=== PATIENT | male | born 1960 | race Caucasian/White ===

== ENCOUNTER 2018-11-18 15:25 | Emergency (ER) | payer SELFPAY ==
--- NOTE | 2018-11-18 15:55 | ER Document Report ---
Addendum entered and electronically signed by MEAGAN GARCIA LPC 11/19/18 11:37: Discharge - Discharge Clinical Impression: Acute hyperkalemia, Suicidal ideation Uncontrolled diabetes mellitus Qualifiers: Diabetes mellitus type: type 2 Glycemic state: with hyperglycemia Qualified Code(s): E11.65 - Type 2 diabetes mellitus with hyperglycemia Alcohol intoxication Qualifiers: Complication of substance-induced condition: uncomplicated Qualified Code(s): F10.920 - Alcohol use, unspecified with intoxication, uncomplicated Condition: Stable Disposition: HOME, SELF-CARE Additional Instructions: You have been evaluated by both medical and mental health providers while in the emergency department. You have been cleared from both acute medical and p sychiatric issues due to firearms having been removed, family involved (, son) and wanting to be linked to outpatient mental health services. DEPRESSION: Your evaluation reveals that you have mental depression. While symptoms may be vague, they often include disturbance of sleep, fatigue, loss of appetite, and general loss of interest in life. While depression may be a side effect of drugs, or a reaction to a major change in your life, many cases have no known cause. If depression is acute, and related to a major loss in your life, you can expect it to clear completely with time. If you have been depressed a long time, are prone to repeated bouts of depression or low mood, or have been thinking of suicide, get help. Depression can be treated with anti-depressant medication and counselling. Long-term depression will often take a few weeks to clear, even with appropriate medication. Follow-up care is important. SUICIDAL IDEATION: Suicidal ideation is a common medical term for thoughts about suicide, which may be as detailed as a formulated plan, without the suicidal act itself. Although most people who undergo suicidal ideation do not commit suicide, some go on to make suicide attempts. The range of suicidal ideation varies greatly from fleeting to detailed planning, role playing, and unsuccessful attempts. While thoughts about suicide are common, most people do not carry out serious actions to commit suicide. Based upon your evaluation and discussion with you, we do not believe you are currently at risk to act upon your thoughts of suicide. You have agreed to return to the Emergency Department, at any time, if you feel inclined to act upon your suicidal thoughts. Acute Alcohol Intoxication Your evaluation revealed very high levels of alcohol. You can from drinking a large amount of alcohol rapidly! Further, there's the risk of falls, traffic accidents, and fights. A high portion (about 50 percent) of the serious injuries seen in hospital emergency rooms are caused by alcohol. Alcohol overdosage is usually due to an underlying emotional or psychiatric problem. You may benefit from counselling. If "binge" drinking is an ongoing problem for you, or if you drink ANY AMOUNT of alcohol EVERY day, you most likely have a tendency to alcoholism. You should avoid alcohol totally. We can refer you for treatment. Persons with alcohol problems are often also prone to other addictions -- you should discuss any use of medications or drugs with the doctor. You should be watched at home for the next several hours by someone who has not been drinking. Get extra fluids for the next 24 hours. Call the doctor if there is repeated vomiting, increasing headache, decreasing level of alertness, or any other worsening. FOLLOW-UP CARE: Your has confirmed the firearms were removed from the home by law enforcement yesterday and no other firearms available. Kylie confirmed your prescription of Suboxone is ready. You should try to avoid use of it since you have gone without it. You are being connected to outpatient follow up for medication management and therapy at [facility] on 11/26/18 at 0800. You have been provided with the outpatient mental health resource sheet which documented appointment location, date and time. Also [facility] mobile crisis management number. If you experience worsening or a significant change in your symptoms, notify the physician immediately, utilize mobile crisis or return to the Emergency Department at any time for re-evaluation. Referrals: [facility] [Outside] - Follow up as needed [facility] [Outside] - 11/26/18 8:00 am Addendum entered and electronically signed by MEAGAN GARCIA LPC 11/19/18 11 :28: Discharge - Discharge Clinical Impression: Acute hyperkalemia, Suicidal ideation Uncontrolled diabetes mellitus Qualifiers: Diabetes mellitus type: type 2 Glycemic state: with hyperglycemia Qualified Code(s): E11.65 - Type 2 diabetes mellitus with hyperglycemia Alcohol intoxication Qualifiers: Complication of substance-induced condition: uncomplicated Qualified Code(s): F10.920 - Alcohol use, unspecified with intoxication, uncomplicated Condition: Stable Disposition: HOME, SELF-CARE Additional Instructions: You have been evaluated by both medical and mental health providers while in the emergency department. You have been cleared from both acute medical and psychiatric issues due to firearms having been removed, family involved (, son) and wanting to be linked to outpatient mental health services. DEPRESSION: Your evaluation reveals that you have mental depression. While symptoms may be vague, they often include disturbance of sleep, fatigue, loss of appetite, and general loss of interest in life. While depression may be a side effect of drugs, or a reaction to a major change in your life, many cases have no known cause. If depression is acute, and related to a major loss in your life, you can expect it to clear completely with time. If you have been depressed a long time, are prone to repeated bouts of depression or low mood, or have been thinking of suicide, get help. Depression can be treated with anti-depressant medication and counselling. Long-term depression will often take a few weeks to clear, even with appropriate medication. Follow-up care is important. SUICIDAL IDEATION: Suicidal ideation is a common medical term for thoughts about suicide, which may be as detailed as a formulated plan, without the suicidal act itself. Although most people who undergo suicidal ideation do not commit suicide, some go on to make suicide attempts. The range of suicidal ideation varies greatly from fleeting to detailed planning, role playing, and unsuccessful attempts. While thoughts about suicide are common, most people do not carry out serious actions to commit suicide. Based upon your evaluation and discussion with you, we do not believe you are currently at risk to act upon your thoughts of suicide. You have agreed to return to the Emergency Department, at any time, if you feel inclined to act upon your suicidal thoughts. Acute Alcohol Intoxication Your evaluation revealed very high levels of alcohol. You can from drinking a large amount of alcohol rapidly! Further, there's the risk of falls, traffic accidents, and fights. A high portion (about 50 percent) of the serious injuries seen in hospital emergency rooms are caused by alcohol. Alcohol overdosage is usually due to an underlying emotional or psychiatric problem. You may benefit from counselling. If "binge" drinking is an ongoing problem for you, or if you drink ANY AMOUNT of alcohol EVERY day, you most likely have a tendency to alcoholism. You should avoid alcohol totally. We can refer you for treatment. Persons with alcohol problems are often also prone to other addictions -- you should discuss any use of medications or drugs with the doctor. You should be watched at home for the next several hours by someone who has not been drinking. Get extra fluids for the next 24 hours. Call the doctor if there is repeated vomiting, increasing headache, decreasing level of alertness, or any other worsening. FOLLOW-UP CARE: Your wive has confirmed the firearms were removed from the home by law enforcement yesterday and no other firearms available. Daphneshaniat confirmed your prescription of Suboxone is ready. You should try to avoid use of it since you have gone without it. You are being connected to outpatient follow up for medication management and therapy at [facility] for mental health and substance abuse. You have been provided with the outpatient mental health resource sheet which documented appointment location, date and time. Also highlighted [facility] mobile crisis management number. If you experience worsening or a significant change in your symptoms, notify the physician immediately, utilize mobile crisis or return to the Emergency Department at any time for re-evaluation. Referrals: [facility] Crisis Team [Outside] - Follow up as needed [facility] [Outside] - Follow up as needed Original Note: ED Medical Screen (RME) - General Chief Complaint: Psych Problem Stated Complaint: PSYCH EVAL Time Seen by Provider: 11/18/18 15:48 Notes: Patient is a 58-year-old male with history of chronic low back pain that presents to the emergency department for chief complaint of suicidal ideation and threatened attempt. Patient apparently was holding a shotgun, threatening to kill himself, stating that he needs to have his Suboxone for his chronic low back pain, he reports being out of it for about a month, states that he has not found a physician that is willing to prescribe it for him here, he recently m qi from [place] this past May, he states he was previously on 2 mg of Suboxone and is gotten so bad that he states that he would rather be or have his medication for his pain. ROS: Other than noted above, the 12 point review of systems was reviewed with the patient and were negative, all pertinent findings are included in the HPI. PHYSICAL EXAMINATION: Vital signs reviewed. GENERAL: Patient is agitated and irritated, but answering questions appropriately HEAD: Atraumatic, normocephalic. EYES: Pupils equal round extraocular movements intact, conjunctiva are normal. ENT: Nares patent NECK: Normal range of motion CV: Heart rate tachycardic, regular rhythm LUNGS: No respiratory distress Musculoskeletal: Normal range of motion NEUROLOGICAL: Normal speech PSYCH: Patient is agitated on exam, poor eye contact MDM: Patient seen and examined for rapid initial assessment. Vital signs reviewed. A comprehensive ED assessment and evaluation of the patient, analysis of test results and completion of the medical decision making process will be conducted by additional ED providers. *Note is created using voice recognition software and may contain spelling, syntax or grammatical errors. TRAVEL OUTSIDE OF THE [place] IN LAST 30 DAYS: No - Related Data Allergies/Adverse Reactions: No Known Allergies Allergy (Unverified 11/18/18 15:30) Past Medical History - Social History Drug Abuse: Prescription drugs Endocrine Medical History: Reports: Hx Diabetes Mellitus Type 1 Renal/ Medical History: Denies: Hx Peritoneal Dialysis Psychiatric Medical History: Reports: Hx Depression Physical Exam - Vital signs Vitals: Temp Pulse Resp BP Pulse Ox 97.7 F 105 H 18 137/91 H 96 11/18/18 15:36 11/18/18 15:36 11/18/18 15:36 11/18/18 15:36 11/18/18 15:36 Course - Vital Signs Vital signs: Temp Pulse Resp BP Pulse Ox 97.7 F 105 H 18 137/91 H 96 11/18/18 15:36 11/18/18 15:36 11/18/18 15:36 11/18/18 15:36 11/18/18 15:36 - Laboratory Result Diagrams: 11/18/18 16:15 11/18/18 16:15
[2018-11-18 16:39] LABS: ABSOLUTE BASOPHILS # (AUTO) 0.1 10^3/uL (0.0-0.2); ABSOLUTE EOSINOPHILS # (AUTO) 0.1 10^3/uL (0.0-0.6); ABSOLUTE LYMPHOCYTES (AUTO) 1.8 10^3/uL (0.5-4.7); ABSOLUTE MONOCYTES (AUTO) 0.6 10^3/uL (0.1-1.4); ABSOLUTE NEUT (AUTO) 5.4 10^3/uL (1.7-8.2); BASOPHILS % (AUTO) 0.9 % (0-2); EOSINOPHILS % (AUTO) 0.8 % (0-6); HEMOGLOBIN 19.7 g/dL (13.5-17.0); LYMPHOCYTES % (AUTO) 22.5 % (13-45); MEAN CORPUSCULAR HEMOGLOBIN 32.5 pg (27.0-33.4); MEAN CORPUSCULAR VOLUME 96 fl (80-97); MONOCYTES % (AUTO) 7.7 % (3-13); PLATELET COUNT 271 10^3/uL (150-450); RED BLOOD COUNT 6.05 10^6/uL (4.35-5.55); RED CELL DISTRIBUTION WIDTH 13.5 % (11.5-14.0); SEGMENTED NEUTROPHILS % (AUTO) 68.1 % (42-78); TOTAL CELLS COUNTED % (AUTO) 100 %
[2018-11-18 16:48] LABS: HEMATOCRIT 57.9 % (37.9-51.0)
[2018-11-18 16:49] LABS: APPEARANCE,URINE CLEAR; BILIRUBIN,URINE NEGATIVE (NEGATIVE); COLOR,URINE COLORLESS; GLUCOSE, URINE >=500 mg/dL (NEGATIVE); KETONES,URINE TRACE mg/dL (NEGATIVE); LEUKOCYTE ESTERASE,URINE NEGATIVE (NEGATIVE); NITRITE,URINE NEGATIVE (NEGATIVE); PROTEIN,URINE NEGATIVE (NEGATIVE); URINE SPECIFIC GRAVITY 1.021; UROBILINOGEN,URINE NEGATIVE mg/dL (<2.0)
[2018-11-18 17:11] LABS: URINE AMPHETAMINES SCREEN NEGATIVE; URINE BARBITURATES SCREEN NEGATIVE; URINE BENZODIAZEPINES SCREEN NEGATIVE; URINE COCAINE SCREEN NEGATIVE; URINE METHADONE SCREEN NEGATIVE; URINE PHENCYCLIDINE SCREEN NEGATIVE
[2018-11-18 17:29] LABS: URINE MARIJUANA (THC) SCREEN NEGATIVE
[2018-11-18 17:53] LABS: ALANINE AMINOTRANSFERASE 28 U/L (21-72); ALCOHOL 187 mg/dL (NONE DETECTED); ALKALINE PHOSPHATASE 80 U/L (38-126); ANION GAP 18 (5-19); ASPARTATE AMINO TRANSFERASE 23 U/L (17-59); BILIRUBIN,DIRECT 0.3 mg/dL (0.0-0.4); BILIRUBIN,TOTAL 0.5 mg/dL (0.2-1.3); BLOOD UREA NITROGEN 14 mg/dL (7-20); CALCIUM 10.5 mg/dL (8.4-10.2); CARBON DIOXIDE 23 mmol/L (22-30); CHLORIDE 99 mmol/L (98-107); POTASSIUM 5.3 mmol/L (3.6-5.0); SODIUM 139.7 mmol/L (137-145); TOTAL PROTEIN 8.3 g/dL (6.3-8.2)
[2018-11-18 18:10] LABS: ACETAMINOPHEN < 10 ug/mL (10-30); SALICYLATE < 1.0 mg/dL (2.0-20.0)
[2018-11-18 18:13] LABS: GLUCOSE 438 mg/dL (75-110)
[2018-11-18] MEDS ORDERED: NORMAL SALINE 1000 ML 1,000 ML IV ONE ×2 (18:19)
[2018-11-18] MEDS ORDERED: INSULIN REG, HUMAN 100 UNIT/ML 3 ML VIAL (PYX) IV ONE (18:19)
[2018-11-18 18:40] LABS: VENOUS BLOOD BASE EXCESS -3.3 mmol/L; VENOUS BLOOD HCO3 22.8 mmol/L (20-32); VENOUS BLOOD PCO2 44.6 mmHg (35-63); VENOUS BLOOD PH 7.33 (7.30-7.42)
[2018-11-18] MEDS ORDERED: LORAZEPAM INJ 2 MG/1 ML VIAL ONE (18:43)
[2018-11-18] MEDS ORDERED: HALOPERIDOL LACTATE INJ 5 MG/1 ML VIAL ONE (18:47)
[2018-11-18] MEDS ORDERED: LORAZEPAM INJ 2 MG/1 ML VIAL IM ONE (19:00)
[2018-11-18] MEDS ORDERED: HALOPERIDOL LACTATE INJ 5 MG/1 ML VIAL IM ONE (19:00)
--- NOTE | 2018-11-18 21:49 | EKG REPORT ---
SEVERITY:- BORDERLINE ECG - SINUS RHYTHM BORDERLINE T ABNORMALITIES, INFERIOR LEADS : Confirmed by: Glo Mo MD 18-Nov-2018 21:49:09
[2018-11-18 22:27] LABS: ANION GAP 14 (5-19); BLOOD UREA NITROGEN 13 mg/dL (7-20); CALCIUM 8.9 mg/dL (8.4-10.2); CARBON DIOXIDE 20 mmol/L (22-30); CHLORIDE 106 mmol/L (98-107); GLUCOSE 172 mg/dL (75-110); POTASSIUM 4.4 mmol/L (3.6-5.0); SODIUM 140.1 mmol/L (137-145)
--- NOTE | 2018-11-18 22:34 | ER Document Report ---
ED Psych Disorder / Suicide - General Chief Complaint: Psych Problem Stated Complaint: PSYCH EVAL Time Seen by Provider: 11/18/18 15:48 Mode of Arrival: Ambulatory Information source: Patient Notes: Patient complained of suicidal ideation because he was in pain and said he called his doctor to call in a prescription for Suboxone for him. He said he does not want to live in pain anymore and wanted to kill himself. TRAVEL OUTSIDE OF THE [place] IN LAST 30 DAYS: No - HPI Patient complains to provider of: Suicidal ideation Onset: Just prior to arrival Onset was: Sudden Quality of pain: No pain Severity: None Pain Level: Denies Suicide Risk Factors: Male, Organized plan Normal mood: No Associated symptoms: Angry, Depressed Similar symptoms previously: No Recently seen / treated by doctor: No - Related Data Allergies/Adverse Reactions: No Known Allergies Allergy (Unverified 11/18/18 15:30) Past Medical History - Social History Smoking Status: Unknown if Ever Smoked Drug Abuse: Prescription drugs Family History: Reviewed & Not Pertinent Patient has suicidal ideation: Yes Patient has homicidal ideation: No Endocrine Medical History: Reports: Hx Diabetes Mellitus Type 1 Renal/ Medical History: Denies: Hx Peritoneal Dialysis Psychiatric Medical History: Reports: Hx Depression Review of Systems - Review of Systems Constitutional: No symptoms reported EENT: No symptoms reported Cardiovascular: No symptoms reported Respiratory: No symptoms reported Gastrointestinal: No symptoms reported Genitourinary: No symptoms reported Male Genitourinary: No symptoms reported Musculoskeletal: No symptoms reported Skin: No symptoms reported Hematologic/Lymphatic: No symptoms reported Neurological/Psychological: Depression, Suicidal ideation. denies: Homicidal ideation -: Yes All other systems reviewed and negative Physical Exam - Vital signs Vitals: Temp Pulse Resp BP Pulse Ox 97.7 F 105 H 18 137/91 H 96 11/18/18 15:36 11/18/18 15:36 11/18/18 15:36 11/18/18 15:36 11/18/18 15:36 Interpretation: Normal - General General appearance: Appears well, Alert In distress: None - HEENT Head: Normocephalic, Atraumatic Eyes: Normal Pupils: PERRL - Respiratory Respiratory status: No respiratory distress Chest status: Nontender Breath sounds: Normal Chest palpation: Normal - Cardiovascular Rhythm: Regular Heart sounds: Normal auscultation Murmur: No - Abdominal Inspection: Normal Distension: No distension Bowel sounds: Normal Tenderness: Nontender Organomegaly: No organomegaly - Back Back: Normal, Nontender - Extremities General upper extremity: Normal inspection, Nontender, Normal color, Normal ROM, Normal temperature General lower extremity: Normal inspection, Nontender, Normal color, Normal ROM, Normal temperature, Normal weight bearing. No: Raúl's sign - Neurological Neuro grossly intact: Yes Cognition: Normal Orientation: AAOx4 [place] Coma Scale Eye Opening: Spontaneous [place] Coma Scale Verbal: Oriented [place] Coma Scale Motor: Obeys Commands [place] Coma Scale Total: 15 Speech: Normal Motor strength normal: LUE, RUE, LLE, RLE Sensory: Normal - Psychological Associated symptoms: Aggressive - Patient pulled out his IV and threatened to leave the ED., Depressed, Flat affect - Skin Skin Temperature: Warm Skin Moisture: Dry Skin Color: Normal Course - Vital Signs Vital signs: Temp Pulse Resp BP Pulse Ox 97.7 F 105 H 18 137/91 H 96 11/18/18 15:36 11/18/18 15:36 11/18/18 15:36 11/18/18 15:36 11/18/18 15:36 11/18/18 22:35 Patient is medically cleared for psychiatric evaluation. - Laboratory Result Diagrams: 11/18/18 16:15 11/18/18 22:01 Laboratory results interpreted by me: 11/18/18 11/18/18 11/18/18 16:15 16:15 16:15 RBC 6.05 H Hgb 19.7 H Hct 57.9 H Potassium 5.3 H Carbon Dioxide Glucose 438 H* Calcium 10.5 H Total Protein 8.3 H Urine Glucose (UA) >=500 H Urine Ketones TRACE H Salicylates < 1.0 L Acetaminophen < 10 L 11/18/18 22:01 RBC Hgb Hct Potassium Carbon Dioxide 20 L Glucose 172 H Calcium Total Protein Urine Glucose (UA) Urine Ketones Salicylates Acetaminophen - EKG Interpretation by Dc EKG shows normal: Sinus rhythm Rate: Normal - 99 Rhythm: NSR When compared to previous EKG there are: Previous EKG unavailable Additional EKG results interpreted by me: 11/18/18 22:33 No STEMI. Discharge - Discharge Clinical Impression: Acute hyperkalemia, Suicidal ideation Uncontrolled diabetes mellitus Qualifiers: Diabetes mellitus type: type 2 Glycemic state: with hyperglycemia Qualified Code(s): E11.65 - Type 2 diabetes mellitus with hyperglycemia Alcohol intoxication Qualifiers: Complication of substance-induced condition: uncomplicated Qualified Code(s): F10.920 - Alcohol use, unspecified with intoxication, uncomplicated Condition: Stable Disposition: PSYCH HOSP/UNIT
--- NOTE | 2018-11-19 11:02 | ER Document Report ---
Doctor's Note Notes: 11/19/18 10:58 I had a long discussion with this patient. He is awake, oriented and no longer intoxicated. He is able to ambulate without any difficulty. He is answering questions honestly and completely. Patient states that he was in severe pain yesterday after weaning himself off of Suboxone. He states he went from 12 mg a day to 2 mg a day and had not been on it for the last 3 days. Yesterday he states he got heavily intoxicated because of the pain. He states he wanted to make the pain stop which is why he began thinking about killing himself. He did get to the point where he found a shotgun in the house but states he did not know how to work the gun. Patient is tearful and very remorseful about doing t his. He is concerned that this may have caused a lot of strain on his and son. He states he does not want to and would never want to leave them alone. He states he is very sad that he put them through this. He denies any active suicidal or homicidal ideations. He denies history of suicidality in the past. Patient states the police took the weapons out of the house. He states he does feel safe going home and feels much better physically today. He states the pain in his low back and lower extremities is the best it has been in a long time. He does currently have a Suboxone prescription ready to be picked up at the pharmacy but he states he feels like he may be able to get off of this medication because he never wants to deal with withdrawals again. He is currently living in the area and will be referred for outpatient counseling and management. He was encouraged to return to the emergency room at any point in time for further evaluation if he is feeling unsafe. Prior to discharge the psychiatric team will confirm that all weapons have been removed and that family has no more to add to the story and feels comfortable with him being discharged home.
[2018-11-19 12:14] VITALS: BP 132/76
--- NOTE | 2018-11-20 14:26 | PSYCHOLOGICAL NOTE ---
Psych Note - Psych Note Date seen by psych provider: 11/19/18 Time seen by psych provider: 07:38 - Evaluation from [id number]. Discussion with ED Physician at 1034. Psych Note: Reason for Consult: Alcohol Intoxication, SI with plan Contact Permissions: He provided Clemente [phone] and [phone]. and Son came for support. Patient is a 58 year old male who presented to the ED yesterday for alcohol intoxication and SI with a plan. Patient was alseep. He was easily aroused and quickly became alert and oriented. He stated "I'm ready to go." He said he was in the ED because "I have been on Suboxone for 5 years, I tried to stop, I had bad withdraws, I called my doctor in [place] for refill, I drank a little and lost control." He identified he was on Suboxone "due to being prescribed pain medications and getting addicted." He said he "drank [place], something new yesterday." His Serum Alcohol Level was 187 upon arrival to the ED yesterday. He stated he just moved to [place] from [place] in May 2018, he went to a clinic locally for Suboxone, "they treat you like a drug addict here and it bothers me." He said he did not remember any SI with a plan and commented "plan, no plan." He denied history of SI attempts. He denied previous hospitalizations and detox treatment. He stated he didn't think he needed detox or treatment. He denied other drug use. He reported he recalled running off from the ED yesterday and it was because "my doctor from [place] called in my medication and said it was ready at [facility] ([facility] He stated his could be contacted but she has a new phone so he doesn't know the number without getting it from his phone and he thinks she knows he is in the ED Patient was alert and oriented to self, person, place, time and situation. Mood was pleasant and euthymic with congruent affect. He denied SI/HI and history of attempts. He did not appear to be responding to internal stimuli as evidenced by fair eye contact, answering questions appropriately when addressed, staying on topic and carrying on dialogue conversation. Thought processes were liner and organized. Conversational speech was within normal limits for rate, tone and prosody. Intellectual abilities are estimated to be average. Insight, judgment and impulse control were fair as evidenced by discussing and processing crisis with attending ED Physician later. Attending ED Physician stated patient was physically shaking and tearful when he told her he had access to 2 shot guns at home yesterday, had texted his brother and would have killed himself with one but he couldn't figure out how to use them. He reported to [place] confiscated the firearms. She noted due to his body language and demeanor it seemed he was scared and upset about doing that, said he was scared and stated he does not want to . Attending ED Physician spoke to when she arrived to ED and confirmed the firearms were in fact confiscated my LE and was okay with patient going home. Diagnosis: SI 292.0 (F11.23) Opioid Withdrawal 291.9 (F10.99) Unspecified Alcohol Related Disorder 311 (F32.9) Unspecified Depressive Disorder 304.00 (F11.20) Opioid Use Disorder, Severe (had been on Suboxone 5 years, addicted to prescribed medication) Impression/plan: Patient is cleared from acute psychiatric services. He denied current SI/HI, history of previous attempts and seemed scared/remorseful about the 2 shot guns. No observed psychosis. It is felt patient was withdrawing from Suboxone which led to him drinking alcohol and thus increased depressive state. He has had time to sober up from alcohol intoxication.. He has a prescription of Suboxone at the [facility] (confirmed by [facility]) if needed and agreed to outpatient MH linkage. Firearms have been confiscated by police per . and Son feel comfortable with patient coming home and are natural supports. Scheduled follow up appointment with [facility] on 11/26/18 at 0800. Patient provided with outpatient MH resource sheet which highlighted contact information for [facility], documented appointment date and time and highlighted [facility] for crisis/talk therapy/linkage to other supports/services. Psychoeducated patient about [facility] MCM. Consulted with Dr. Johnson regarding the management and care of patient. ED Physician in agreement with recommendations.
== END 2018-11-19 12:15 | disposition home or self-care (01) ==
LOC: ER 15:25
DX: R45.851 Suicidal ideations (principal); E87.5 Hyperkalemia; E11.65 Type 2 diabetes mellitus with hyperglycemia; F10.920 Alcohol use, unspecified with intoxication, uncomplicated; F32.9 Major depressive disorder, single episode, unspecified; F11.23 Opioid dependence with withdrawal; F10.99 Alcohol use, unspecified with unspecified alcohol-induced disorder; F11.20 Opioid dependence, uncomplicated
CPT/HCPCS: 93005; 99285; 96372; 96360; 36415; 80307 ×4; 85025; 80048; 80053; 81001; 82803; 93010; J1630; J2060; J1815; J7030

== ENCOUNTER 2019-09-30 08:52 | Inpatient (IN) | payer BC ==
[2019-09-30] MEDS ORDERED: NORMAL SALINE 1000 ML 1,000 ML IV ONE ×3 (09:05→10:18)
[2019-09-30 10:00] LABS: HEMATOCRIT 52.1 % (37.9-51.0); MEAN CORPUSCULAR HEMOGLOBIN 32.8 pg (27.0-33.4); MEAN CORPUSCULAR HGB CONC 32.7 g/dL (32.0-36.0); MEAN CORPUSCULAR VOLUME 100 fl (80-97); PLATELET COUNT 286 10^3/uL (150-450); RED BLOOD COUNT 5.19 10^6/uL (4.35-5.55); RED CELL DISTRIBUTION WIDTH 13.7 % (11.5-14.0)
[2019-09-30 10:01] LABS: ALBUMIN 4.9 g/dL (3.5-5.0); ALKALINE PHOSPHATASE 113 U/L (38-126); ASPARTATE AMINO TRANSFERASE 25 U/L (17-59); BILIRUBIN,DIRECT 0.5 mg/dL (0.0-0.4); BILIRUBIN,TOTAL 0.5 mg/dL (0.2-1.3); BLOOD UREA NITROGEN 15 mg/dL (7-20); CALCIUM 8.8 mg/dL (8.4-10.2); CHLORIDE 100 mmol/L (98-107); GLUCOSE 364 mg/dL (75-110); TOTAL PROTEIN 8.4 g/dL (6.3-8.2)
[2019-09-30 10:06] LABS: VENOUS BLOOD BASE EXCESS -29.9 mmol/L; VENOUS BLOOD HCO3 4.6 mmol/L (20-32); VENOUS BLOOD PCO2 29.7 mmHg (35-63)
[2019-09-30 10:07] LABS: APPEARANCE,URINE CLEAR; BILIRUBIN,URINE NEGATIVE (NEGATIVE); COLOR,URINE STRAW; GLUCOSE, URINE >=500 mg/dL (NEGATIVE); KETONES,URINE 80 mg/dL (NEGATIVE); LEUKOCYTE ESTERASE,URINE NEGATIVE (NEGATIVE); NITRITE,URINE NEGATIVE (NEGATIVE); PROTEIN,URINE 100 mg/dL (NEGATIVE); URINE SPECIFIC GRAVITY 1.017; UROBILINOGEN,URINE NEGATIVE mg/dL (<2.0)
[2019-09-30 10:13] LABS: CARBON DIOXIDE < 5 mmol/L (22-30)
[2019-09-30 10:14] LABS: VENOUS BLOOD PH 6.8 (7.30-7.42)
[2019-09-30] MEDS ORDERED: NORMAL SALINE 100 ML with INSULIN REGULAR, HUMAN 100 UNIT IV PRN ×2 (10:20)
[2019-09-30 10:30] LABS: ABSOLUTE LYMPHOCYTES# (MANUAL) 1.7 10^3/uL (0.5-4.7); ABSOLUTE MONOCYTES # (MANUAL) 1.2 10^3/uL (0.1-1.4); BASOPHILS % (MANUAL) 0 % (0-2); EOSINOPHILS % (MANUAL) 0 % (0-6); LYMPHOCYTES % (MANUAL) 12 % (13-45); METAMYELOCYTES % (MANUAL) 1 % (0-1); MONOCYTES % (MANUAL) 10 % (3-13); SEGMENTED NEUTROPHILS % (MAN) 75 % (42-78); TOTAL CELLS COUNTED 100
[2019-09-30 10:31] LABS: PLATELET COMMENT ADEQUATE
[2019-09-30] MEDS ORDERED: INSULIN REG, HUMAN 100 UNIT/ML 3 ML VIAL (PYX) ONE (10:37)
--- NOTE | 2019-09-30 11:08 | ER Document Report ---
ED Blood Sugar Problem - General Chief Complaint: High Blood Sugar Stated Complaint: BLOOD SUGAR PROBLEMS Time Seen by Provider: 09/30/19 10:13 Mode of Arrival: Medic Information source: Patient TRAVEL OUTSIDE OF THE [place] IN LAST 30 DAYS: No - HPI Notes: Patient states approximate 4 days ago he developed fever chills cough congestion and flulike symptoms. He states because he felt this way he did not take any of his medicines. He states he has not had his insulin for the last 4 days. He states today he began to feel very weak short of breath and nauseous. He also began to feel very thirsty. The symptoms have been severe and constant. They are worse with exertion and better with rest. They do radiate throughout his body. - Related Data Allergies/Adverse Reactions: No Known Allergies Allergy (Unverified 11/18/18 15:30) Home Medications: insulin Past Medical History - General Information source: Patient - Social History Smoking Status: Former Smoker Frequency of alcohol use: None Drug Abuse: None Family History: Reviewed & Not Pertinent Patient has suicidal ideation: No Patient has homicidal ideation: No Endocrine Medical History: Reports: Hx Diabetes Mellitus Type 1 Renal/ Medical History: Denies: Hx Peritoneal Dialysis Psychiatric Medical History: Reports: Hx Depression Review of Systems - Review of Systems Constitutional: Chills, Fever, Malaise, Weakness Cardiovascular: denies: Chest pain, Palpitations Respiratory: Cough, Short of breath -: Yes All other systems reviewed and negative Physical Exam - Vital signs Vitals: Temp 97.6 F 09/30/19 09:26 Interpretation: Tachycardic - General General appearance: Alert, Anxious In distress: Moderate - HEENT Head: Normocephalic, Atraumatic Eyes: Normal Pupils: PERRL - Respiratory Respiratory status: Tachypnea Chest status: Nontender Breath sounds: Normal Chest palpation: Normal - Cardiovascular Rhythm: Tachycardia Heart sounds: Normal auscultation Murmur: No - Abdominal Inspection: Normal Distension: No distension Bowel sounds: Normal Tenderness: Nontender Organomegaly: No organomegaly - Back Back: Normal, Nontender - Extremities General upper extremity: Normal inspection, Nontender, Normal color, Normal ROM, Normal temperature General lower extremity: Normal inspection, Nontender, Normal color, Normal ROM, Normal temperature, Normal weight bearing. No: Raúl's sign - Neurological Neuro grossly intact: Yes Cognition: Normal Orientation: AAOx4 [place] Coma Scale Eye Opening: Spontaneous [place] Coma Scale Verbal: Oriented [place] Coma Scale Motor: Obeys Commands [place] Coma Scale Total: 15 Speech: Normal Motor strength normal: LUE, RUE, LLE, RLE Sensory: Normal - Psychological Associated symptoms: Normal affect, Normal mood - Skin Skin Temperature: Warm Skin Moisture: Dry Skin Color: Normal Course - Re-evaluation Re-evalutation: 09/30/19 11:07 Patient's laboratory values are consistent with an obvious DKA. Patient has received 2 L of fluid but still appears very dry. Another 2 L of fluid have been ordered as well as an insulin drip. The [facility] plans intelligence officer chief is consulted on the patient and will accept the patient to the ICU. - Vital Signs Vital signs: Temp Pulse Resp BP Pulse Ox 97.6 F 09/30/19 09:26 - Laboratory Result Diagrams: 09/30/19 08:35 09/30/19 08:35 Laboratory results interpreted by me: 09/30/19 09/30/19 09/30/19 08:35 08:35 09:08 WBC 12.0 H Hct 52.1 H MCV 100 H Lymphocytes % (Manual) 12 L Abs Neuts (Manual) 9.1 H VBG pH VBG pCO2 VBG HCO3 Carbon Dioxide < 5 L* Glucose 364 H POC Glucose 345 H Lactic Acid Direct Bilirubin 0.5 H Total Protein 8.4 H Urine Protein Urine Glucose (UA) Urine Ketones Urine Blood 09/30/19 09/30/19 09/30/19 09:50 09:50 09:50 WBC Hct MCV Lymphocytes % (Manual) Abs Neuts (Manual) VBG pH 6.80 L* VBG pCO2 29.7 L VBG HCO3 4.6 L Carbon Dioxide Glucose POC Glucose Lactic Acid 3.3 H Direct Bilirubin Total Protein Urine Protein 100 H Urine Glucose (UA) >=500 H Urine Ketones 80 H Urine Blood MODERATE H 09/30/19 10:22 WBC Hct MCV Lymphocytes % (Manual) Abs Neuts (Manual) VBG pH VBG pCO2 VBG HCO3 Carbon Dioxide Glucose POC Glucose 316 H Lactic Acid Direct Bilirubin Total Protein Urine Protein Urine Glucose (UA) Urine Ketones Urine Blood Critical Care Note - Critical Care Note Total time excluding time spent on procedures (mins): 60 Comments: 60 minutes of critical care time were spent on this patient. This included mult iple reassessments. It included discussions with consultants. And included reviewing imaging and laboratory values as well as discussions with family. Discharge - Discharge Clinical Impression: DKA (diabetic ketoacidoses) Qualifiers: Diabetes mellitus type: type 1 Diabetes mellitus complication detail: without coma Qualified Code(s): E10.10 - Type 1 diabetes mellitus with ketoacidosis without coma Condition: Critical Disposition: ADMITTED INPATIENT Admitting Provider: Janes (Manager Portable) Unit Admitted: ICU
[2019-09-30] MEDS ORDERED: NORMAL SALINE 1000 ML 1,000 ML IV PRN (11:13)
[2019-09-30] MEDS ORDERED: ACETAMINOPHEN 325 MG TABLET PO PRN (11:13)
[2019-09-30] MEDS ORDERED: DEXTROSE 50%-WATER 25 GM/50 ML DISP.SYRIN IV PRN ×2 (11:19)
[2019-09-30] MEDS ORDERED: GLUCAGON,HUMAN RECOMB 1 MG INJ IM PRN (11:19)
[2019-09-30] MEDS ORDERED: DEXTROSE 40% GEL 15 GM TUBE PO PRN ×2 (11:19)
--- NOTE | 2019-09-30 11:33 | PDOC CRITICAL CARE PROG REPORT ---
General Date:: 09/30/19 ICU Day:: 1 Hospital Day:: 1 Resuscitation Status: Full Code Events in the past 12 to 24 Hours:: Admitted in first episode of DKA with a VBG 6.8. Had the flu about a week ago. Has not checked BG. Feeling ill this AM. Very short of breath. Consistant with [place] breathing. IVF and insulin drip started. Review of systems relevant to events:: Endocrine Reason for ICU Addmission:: Severe acidosis. Needs ICU for extreme shortnesss of breath until acidosis clears. - Medications: Medications reviewed and adjusted accordingly: Yes Vasopressors:: None Sedation:: None Physical Exam Vital Signs: Temp Pulse Resp BP Pulse Ox 97.6 F 09/30/19 09:26 Intake & Output 09/29/19 09/30/19 10/01/19 06:59 06:59 06:59 Intake Total 1000 Balance 1000 Weight 86.4 kg Weight/Height Weight 86.4 kg Height 6 ft 1 in General appearance: PRESENT: cooperative, disheveled, mild distress, thin Head exam: PRESENT: atraumatic, normocephalic Eye exam: PRESENT: conjunctiva pink, EOMI, PERRLA. ABSENT: scleral icterus Ear exam: PRESENT: normal external ear exam Mouth exam: PRESENT: dry mucosa Respiratory exam: PRESENT: accessory muscle use, clear to auscultation alcides Cardiovascular exam: PRESENT: tachycardia GI/Abdominal exam: PRESENT: normal bowel sounds, soft. ABSENT: distended, guarding, mass, organolmegaly, rebound, tenderness Rectal exam: PRESENT: deferred Extremities exam: PRESENT: full ROM. ABSENT: calf tenderness, clubbing, pedal edema Neurological exam: PRESENT: alert, awake, oriented to person, oriented to place, oriented to time, oriented to situation, CN II-XII grossly intact. ABSENT: motor sensory deficit Skin exam: PRESENT: dry, intact, warm. ABSENT: cyanosis, rash Laboratory/Radiographs Laboratory Results: 09/30/19 08:35 09/30/19 08:35 09/30/19 09/30/19 09/30/19 08:35 08:35 09:50 WBC 12.0 H RBC 5.19 Hgb 17.0 Hct 52.1 H MCV 100 H MCH 32.8 MCHC 32.7 RDW 13.7 Plt Count 286 Seg Neutrophils % Not Reportable VBG pH 6.80 L* VBG pCO2 29.7 L VBG HCO3 4.6 L VBG Base Excess -29.9 Sodium 137.9 Potassium 5.0 Chloride 100 Carbon Dioxide < 5 L* Anion Gap Not Reportable BUN 15 Creatinine 1.20 Est GFR ( Amer) > 60 Glucose 364 H Lactic Acid Calcium 8.8 Total Bilirubin 0.5 AST 25 Alkaline Phosphatase 113 Total Protein 8.4 H Albumin 4.9 Urine Color Urine Appearance Urine pH Ur Specific [place] Urine Protein Urine Glucose (UA) Urine Ketones Urine Blood Urine Nitrite Ur Leukocyte Esterase Urine WBC (Auto) Urine RBC (Auto) 09/30/19 09/30/19 09:50 09:50 WBC RBC Hgb Hct MCV MCH MCHC RDW Plt Count Seg Neutrophils % VBG pH VBG pCO2 VBG HCO3 VBG Base Excess Sodium Potassium Chloride Carbon Dioxide Anion Gap BUN Creatinine Est GFR ( Amer) Glucose Lactic Acid 3.3 H Calcium Total Bilirubin AST Alkaline Phosphatase Total Protein Albumin Urine Color STRAW Urine Appearance CLEAR Urine pH 5.0 Ur Specific [place] 1.017 Urine Protein 100 H Urine Glucose (UA) >=500 H Urine Ketones 80 H Urine Blood MODERATE H Urine Nitrite NEGATIVE Ur Leukocyte Esterase NEGATIVE Urine WBC (Auto) 0 Urine RBC (Auto) 1 Impressions: Severe DKA. All labs, radiographs, diagnostic studies and EKGs were personally reviewed: Yes In addition, reports of radiographic and diagnostic studies were read: Yes Assessment and Plan - Diagnosis (1) DKA (diabetic ketoacidoses) Qualifiers: Diabetes mellitus type: type 1 Diabetes mellitus complication detail: without coma Qualified Code(s): E10.10 - Type 1 diabetes mellitus with ketoacidosis without coma Is this a current diagnosis for this admission?: Yes Plan: First episode at 59 is unusual. However his bicarb < 5 and VBG 6.8 merits observation in the ICU until acidosis clears. Pt at risk of respiratory fatigue and failure. Insulin drip and IVF started. Plan Summary: See above. Critical Time Critical Time (minutes): 35 Level of Care: ICU Anticipated discharge: Home Within: within 72 hours -: 1. The care of a critical patient is a dynamic process. This note is a employment representative synopsis but static in nature. The timeframe for treatments given in order is not necessarily the actual time these treatments may have been done. 2. This patient requires critical care secondary to ongoing requirements for therapy not offered or safe outside the critical care environment. Transfer to a lower level of care will result in altered life or limb morbidity and mortality. 3. Multidisciplinary rounds completed. 4. ABCDE bundle addressed.
[2019-09-30 14:16] LABS: BLOOD UREA NITROGEN 13 mg/dL (7-20); CALCIUM 7.5 mg/dL (8.4-10.2); CHLORIDE 110 mmol/L (98-107); GLUCOSE 238 mg/dL (75-110); POTASSIUM 4.7 mmol/L (3.6-5.0)
[2019-09-30] MEDS ORDERED: INFLUENZA QUAD (6MOS+) 2019-20 VAC 0.5 ML SYR IM ONE (14:22)
[2019-09-30 14:35] LABS: CARBON DIOXIDE < 5 mmol/L (22-30)
[2019-09-30 18:47] LABS: ANION GAP 15 (5-19); BLOOD UREA NITROGEN 11 mg/dL (7-20); CALCIUM 7.2 mg/dL (8.4-10.2); CHLORIDE 113 mmol/L (98-107); GLUCOSE 178 mg/dL (75-110); POTASSIUM 4.2 mmol/L (3.6-5.0)
[2019-09-30 18:54] LABS: CARBON DIOXIDE 8 mmol/L (22-30)
[2019-09-30] MEDS: NORMAL SALINE 100 ML with INSULIN REGULAR, HUMAN 100 UNIT IV PRN ×2 (19:42)
[2019-09-30] MEDS: DEXTROSE 5%-NORMAL SALINE 1,000 ML IV PRN (20:16)
[2019-10-01] MEDS: DEXTROSE 5%-NORMAL SALINE 1,000 ML IV PRN ×3 (00:18→21:13)
[2019-10-01 02:32] LABS: ABSOLUTE LYMPHOCYTES (AUTO) 0.9 10^3/uL (0.5-4.7); ABSOLUTE MONOCYTES (AUTO) 0.8 10^3/uL (0.1-1.4); ABSOLUTE NEUT (AUTO) 4.7 10^3/uL (1.7-8.2); BASOPHILS % (AUTO) 0.7 % (0-2); HEMATOCRIT 38.4 % (37.9-51.0); LYMPHOCYTES % (AUTO) 14.5 % (13-45); MEAN CORPUSCULAR HEMOGLOBIN 32.9 pg (27.0-33.4); MEAN CORPUSCULAR HGB CONC 34.8 g/dL (32.0-36.0); MONOCYTES % (AUTO) 12.7 % (3-13); PLATELET COUNT 193 10^3/uL (150-450); RED BLOOD COUNT 4.06 10^6/uL (4.35-5.55); SEGMENTED NEUTROPHILS % (AUTO) 72.1 % (42-78); TOTAL CELLS COUNTED % (AUTO) 100 %; WHITE BLOOD COUNT 6.5 10^3/uL (4.0-10.5)
[2019-10-01 02:47] LABS: HEMOGLOBIN 13.4 g/dL (13.5-17.0); MEAN CORPUSCULAR VOLUME 94 fl (80-97)
[2019-10-01 02:52] LABS: ANION GAP 11 (5-19); BLOOD UREA NITROGEN 9 mg/dL (7-20); CALCIUM 7.2 mg/dL (8.4-10.2); CARBON DIOXIDE 12 mmol/L (22-30); CHLORIDE 116 mmol/L (98-107); GLUCOSE 181 mg/dL (75-110)
[2019-10-01 02:58] LABS: PHOSPHORUS < 0.5 mg/dL (2.5-4.5)
[2019-10-01] MEDS: POTASSIUM CHLORIDE 10 MEQ TABLET.ER PO SCH ×4 (03:31→19:06)
[2019-10-01] MEDS: PHOSPHORUS #1 250 MG TABLET PO SCH ×3 (03:31→15:59)
[2019-10-01] MEDS: NORMAL SALINE 100 ML with INSULIN REGULAR, HUMAN 100 UNIT IV PRN ×2 (05:20)
--- NOTE | 2019-10-01 09:12 | PDOC CRITICAL CARE PROG REPORT ---
General Date:: 10/01/19 ICU Day:: 2 Hospital Day:: 2 Resuscitation Status: Full Code Events in the past 12 to 24 Hours:: Bicarb up to 12. Phosphorus, potassium both low, replaced. Still has insulin drip. Review of systems relevant to events:: Endocrine Reason for ICU Addmission:: Severe acidosis. Needs ICU for extreme shortnesss of breath until acidosis clears. - Medications: Medications reviewed and adjusted accordingly: Yes Vasopressors:: None Sedation:: None Physical Exam Vital Signs: Temp Pulse Resp BP Pulse Ox 98.3 F 82 15 126/65 H 97 10/01/19 03:50 09/30/19 20:00 10/01/19 06:00 10/01/19 05:46 10/01/19 06:00 Intake & Output 09/30/19 10/01/19 10/02/19 06:59 06:59 06:59 Intake Total 5751 Output Total 2660 Balance 3091 Weight 90.7 kg Weight/Height Weight 90.7 kg Height 6 ft 1 in General appearance: PRESENT: no acute distress, well-developed, well-nourished Head exam: PRESENT: atraumatic, normocephalic Eye exam: PRESENT: conjunctiva pink, EOMI, PERRLA. ABSENT: scleral icterus Ear exam: PRESENT: normal external ear exam Mouth exam: PRESENT: dry mucosa Respiratory exam: PRESENT: clear to auscultation alcides. ABSENT: rales, rhonchi, wheezes Cardiovascular exam: PRESENT: RRR. ABSENT: diastolic murmur, rubs, systolic murmur GI/Abdominal exam: PRESENT: normal bowel sounds, soft. ABSENT: distended, guarding, mass, organolmegaly, rebound, tenderness Rectal exam: PRESENT: deferred Extremities exam: PRESENT: full ROM. ABSENT: calf tenderness, clubbing, pedal edema Musculoskeletal exam: PRESENT: normal inspection Neurological exam: PRESENT: alert, awake, oriented to person, oriented to place, oriented to time, oriented to situation, CN II-XII grossly intact. ABSENT: motor sensory deficit Skin exam: PRESENT: other - Mottling of elbows. Laboratory/Radiographs Laboratory Results: 10/01/19 02:18 10/01/19 02:18 09/30/19 09/30/19 09/30/19 08:35 08:35 09:50 WBC 12.0 H RBC 5.19 Hgb 17.0 Hct 52.1 H MCV 100 H MCH 32.8 MCHC 32.7 RDW 13.7 Plt Count 286 Seg Neutrophils % Not Reportable VBG pH 6.80 L* VBG pCO2 29.7 L VBG HCO3 4.6 L VBG Base Excess -29.9 Sodium 137.9 Potassium 5.0 Chloride 100 Carbon Dioxide < 5 L* Anion Gap Not Reportable BUN 15 Creatinine 1.20 Est GFR ( Amer) > 60 Est GFR (Non-Af Amer) Glucose 364 H Lactic Acid Calcium 8.8 Phosphorus Magnesium Total Bilirubin 0.5 AST 25 Alkaline Phosphatase 113 Total Protein 8.4 H Albumin 4.9 Urine Color Urine Appearance Urine pH Ur Specific [place] Urine Protein Urine Glucose (UA) Urine Ketones Urine Blood Urine Nitrite Ur Leukocyte Esterase Urine WBC (Auto) Urine RBC (Auto) 09/30/19 09/30/19 09/30/19 09:50 09:50 13:52 WBC RBC Hgb Hct MCV MCH MCHC RDW Plt Count Seg Neutrophils % VBG pH VBG pCO2 VBG HCO3 VBG Base Excess Sodium 140.3 Potassium 4.7 Chloride 110 H Carbon Dioxide < 5 L* Anion Gap Not Reportable BUN 13 Creatinine 0.97 Est GFR ( Amer) > 60 Est GFR (Non-Af Amer) Glucose 238 H Lactic Acid 3.3 H Calcium 7.5 L Phosphorus Magnesium Total Bilirubin AST Alkaline Phosphatase Total Protein Albumin Urine Color STRAW Urine Appearance CLEAR Urine pH 5.0 Ur Specific [place] 1.017 Urine Protein 100 H Urine Glucose (UA) >=500 H Urine Ketones 80 H Urine Blood MODERATE H Urine Nitrite NEGATIVE Ur Leukocyte Esterase NEGATIVE Urine WBC (Auto) 0 Urine RBC (Auto) 1 09/30/19 10/01/19 10/01/19 18:00 02:18 02:18 WBC 6.5 RBC 4.06 L Hgb 13.4 L D Hct 38.4 MCV 94 D MCH 32.9 MCHC 34.8 RDW 13.0 Plt Count 193 Seg Neutrophils % 72.1 VBG pH VBG pCO2 VBG HCO3 VBG Base Excess Sodium 136.4 L 139.4 Potassium 4.2 3.0 L* D Chloride 113 H 116 H Carbon Dioxide 8 L* 12 L Anion Gap 15 11 BUN 11 9 Creatinine 0.84 0.70 Est GFR ( Amer) > 60 > 60 Est GFR (Non-Af Amer) Glucose 178 H 181 H Lactic Acid Calcium 7.2 L 7.2 L Phosphorus < 0.5 L Magnesium 2.3 Total Bilirubin AST Alkaline Phosphatase Total Protein Albumin Urine Color Urine Appearance Urine pH Ur Specific [place] Urine Protein Urine Glucose (UA) Urine Ketones Urine Blood Urine Nitrite Ur Leukocyte Esterase Urine WBC (Auto) Urine RBC (Auto) 10/01/19 02:18 WBC RBC Hgb Hct MCV MCH MCHC RDW Plt Count Seg Neutrophils % VBG pH VBG pCO2 VBG HCO3 VBG Base Excess Sodium Cancelled Potassium Cancelled Chloride Cancelled Carbon Dioxide Cancelled Anion Gap Cancelled BUN Cancelled Creatinine Cancelled Est GFR ( Amer) Cancelled Est GFR (Non-Af Amer) Cancelled Glucose Cancelled Lactic Acid Calcium Cancelled Phosphorus Magnesium Total Bilirubin AST Alkaline Phosphatase Total Protein Albumin Urine Color Urine Appearance Urine pH Ur Specific [place] Urine Protein Urine Glucose (UA) Urine Ketones Urine Blood Urine Nitrite Ur Leukocyte Esterase Urine WBC (Auto) Urine RBC (Auto) Impressions: Resolving DKA EKG: ST All labs, radiographs, diagnostic studies and EKGs were personally reviewed: Yes In addition, reports of radiographic and diagnostic studies were read: Yes Assessment and Plan - Diagnosis (1) DKA (diabetic ketoacidoses) Qualifiers: Diabetes mellitus type: type 1 Diabetes mellitus complication detail: without coma Qualified Code(s): E10.10 - Type 1 diabetes mellitus with ketoacidosis without coma Is this a current diagnosis for this admission?: Yes Plan: Improved. Gap closed but bicarb only 12. Still needs insulin drip. Multiple electrolyte disturbances. (2) Hypophosphatemia Is this a current diagnosis for this admission?: Yes Plan: Severe at a level of 0.5. Being replaced (3) Hypokalemia Is this a current diagnosis for this admission?: Yes Plan: As expected, level is 3.0 and being replaced. (4) Hypocalcemia Is this a current diagnosis for this admission?: Yes Plan: Replace as needed. Plan Summary: Insulin drip until bicarb about 18 or higher, then lantus. Home soon. Critical Time Critical Time (minutes): 30 Level of Care: IMCU Anticipated discharge: Home Within: within 48 hours -: 1. The care of a critical patient is a dynamic process. This note is a customer response representative synopsis but static in nature. The timeframe for treatments given in order is not necessarily the actual time these treatments may have been done. 2. This patient requires critical care secondary to ongoing requirements for therapy not offered or safe outside the critical care environment. Transfer to a lower level of care will result in altered life or limb morbidity and mortality. 3. Multidisciplinary rounds completed. 4. ABCDE bundle addressed.
[2019-10-01 09:36] LABS: VENOUS BLOOD BASE EXCESS -9.3 mmol/L; VENOUS BLOOD HCO3 15.9 mmol/L (20-32); VENOUS BLOOD PCO2 32.7 mmHg (35-63); VENOUS BLOOD PH 7.3 (7.30-7.42)
[2019-10-01] MEDS: ENOXAPARIN SODIUM INJ 40 MG/0.4 ML DISP.SYRIN SUBCUT SCH (09:54)
[2019-10-01] MEDS: ASPIRIN 81 MG TABLET, ENT COATED PO SCH (09:55)
[2019-10-01] MEDS ORDERED: BUPRENORPHINE HCL PO SCH (10:00)
[2019-10-01] MEDS ORDERED: NALOXONE HCL PO SCH (10:00)
[2019-10-01] MEDS ORDERED: [UNRECOGNIZED DRUG - OTHER] PO SCH (10:00)
[2019-10-01 10:14] LABS: ANION GAP 8 (5-19); BLOOD UREA NITROGEN 8 mg/dL (7-20); CALCIUM 7.3 mg/dL (8.4-10.2); CARBON DIOXIDE 16 mmol/L (22-30); CHLORIDE 118 mmol/L (98-107); GLUCOSE 138 mg/dL (75-110)
[2019-10-01 10:25] LABS: POTASSIUM 2.6 mmol/L (3.6-5.0)
[2019-10-01] MEDS: PREGABALIN 100 MG CAPSULE PO SCH ×2 (13:51→21:08)
[2019-10-01 18:52] LABS: BLOOD UREA NITROGEN 6 mg/dL (7-20); CALCIUM 7.3 mg/dL (8.4-10.2); CARBON DIOXIDE 19 mmol/L (22-30); GLUCOSE 160 mg/dL (75-110); POTASSIUM 3.2 mmol/L (3.6-5.0)
[2019-10-01 18:58] LABS: CHLORIDE 118 mmol/L (98-107)
[2019-10-01 19:02] LABS: ANION GAP 5 (5-19)
[2019-10-01] MEDS: ATORVASTATIN CALCIUM 10 MG TABLET PO SCH (21:08)
[2019-10-01] MEDS ORDERED: DEXTROSE 40% GEL 15 GM TUBE PO PRN ×2 (23:10)
[2019-10-01] MEDS ORDERED: GLUCAGON,HUMAN RECOMB 1 MG INJ IM PRN (23:10)
[2019-10-01] MEDS ORDERED: DEXTROSE 50%-WATER 25 GM/50 ML DISP.SYRIN IV PRN ×2 (23:10)
[2019-10-01] MEDS ORDERED: INSULIN GLARGINE,HUM.REC.ANLOG 1,000 UNIT/10 ML VIAL SUBCUT SCH (23:45)
[2019-10-02] MEDS ORDERED: INSULIN GLARGINE,HUM.REC.ANLOG 1,000 UNIT/10 ML VIAL (PYX) SUBCUT PRN (01:26)
[2019-10-02] MEDS ORDERED: INSULIN GLARGINE,HUM.REC.ANLOG 1,000 UNIT/10 ML VIAL SUBCUT ONE (01:30)
[2019-10-02] MEDS ORDERED: DEXTROSE 5%-NORMAL SALINE 1,000 ML IV PRN (01:40)
[2019-10-02] MEDS ORDERED: NORMAL SALINE 100 ML with INSULIN REGULAR, HUMAN 100 UNIT IV PRN ×2 (01:40)
[2019-10-02] MEDS: RINGERS SOLUTION,LACTATED 1,000 ML IV PRN ×2 (03:42→21:34)
[2019-10-02 04:44] LABS: ANION GAP 9 (5-19); BLOOD UREA NITROGEN 6 mg/dL (7-20); CALCIUM 7.4 mg/dL (8.4-10.2); CARBON DIOXIDE 17 mmol/L (22-30); CHLORIDE 119 mmol/L (98-107); GLUCOSE 139 mg/dL (75-110); PHOSPHORUS 0.5 mg/dL (2.5-4.5); POTASSIUM 3.1 mmol/L (3.6-5.0)
[2019-10-02] MEDS: PREGABALIN 100 MG CAPSULE PO SCH ×3 (05:48→21:33)
[2019-10-02] MEDS: INSULIN REG, HUMAN 100 UNIT/ML 3 ML VIAL (PYX) SUBCUT SCH ×4 (09:25→21:37)
[2019-10-02] MEDS: POTASSIUM CHLORIDE 10 MEQ TABLET.ER PO SCH ×2 (10:08→17:48)
[2019-10-02] MEDS: ENOXAPARIN SODIUM INJ 40 MG/0.4 ML DISP.SYRIN SUBCUT SCH (10:08)
[2019-10-02] MEDS: ASPIRIN 81 MG TABLET, ENT COATED PO SCH (10:08)
--- NOTE | 2019-10-02 17:43 | PDOC PROGRESS REPORT ---
Subjective Progress Note for:: 10/02/19 Reason For Visit: DKA AND VERY LOW PH. 10/02/2019 Admitted to the ICU on 09/30/2019 with DKA, shortness of breath bicarb less than 5 venous blood gas 6.8. Physical Exam Vital Signs: Temp Pulse Resp BP Pulse Ox 97.8 F 55 L 16 116/63 96 10/02/19 12:01 10/02/19 14:00 10/02/19 12:01 10/02/19 12:01 10/02/19 12:01 Intake & Output 10/01/19 10/02/19 10/03/19 06:59 06:59 06:59 Intake Total 5751 2074 Output Total 2660 500 Balance 3091 1574 Weight 90.7 kg 93.3 kg General appearance: PRESENT: no acute distress Respiratory exam: PRESENT: clear to auscultation alcides. ABSENT: rales, rhonchi, wheezes Cardiovascular exam: PRESENT: RRR. ABSENT: diastolic murmur, rubs, systolic murmur Neurological exam: PRESENT: alert, awake, oriented to person, oriented to place, oriented to time, oriented to situation, CN II-XII grossly intact. ABSENT: motor sensory deficit Psychiatric exam: PRESENT: appropriate affect, normal mood. ABSENT: homicidal ideation, suicidal ideation Results Laboratory Results: 10/01/19 02:18 10/02/19 04:08 10/01/19 10/02/19 18:14 04:08 Sodium 141.8 144.5 Potassium 3.2 L 3.1 L Chloride 118 H 119 H Carbon Dioxide 19 L 17 L Anion Gap 5 9 BUN 6 L 6 L Creatinine 0.63 0.55 Est GFR ( Amer) > 60 > 60 Glucose 160 H 139 H Calcium 7.3 L 7.4 L Phosphorus 0.5 L Assessment and Plan - Diagnosis (2) DKA (diabetic ketoacidoses) Qualifiers: Diabetes mellitus type: type 1 Diabetes mellitus complication detail: without coma Qualified Code(s): E10.10 - Type 1 diabetes mellitus with ketoacidosis without coma Is this a current diagnosis for this admission?: Yes (3) Hypocalcemia Is this a current diagnosis for this admission?: Yes (4) Hypokalemia Is this a current diagnosis for this admission?: Yes (5) Hypophosphatemia Is this a current diagnosis for this admission?: Yes - Plan Summary Summary: Patient was transferred out of the ICU this morning around 0645 hours. Patient states that this is the first time he is ever been in DKA.. Patient states he felt like he had the flu about a week prior to this and did not take his insulin as prescribed. He has been a known diabetic for 7 to 10 years. Patient states he has no other comorbidities. Lives here in [place] with his extended family and he is a retired gardner. Vital signs today reveal the temperature 98.3 pulse is approximately 55 and regu lar blood pressure 113/59, O2 saturations 100% on room air Labs on admission white count was 12,000, today it was 6.5 hemoglobin is stable at 13.4 Venous blood gas yesterday morning showed a pH of 7.30 CO2 was up to 32.7 Bicarb on admission was 4.6 yesterday was 15.9 Base excess on admission was -29.9 yesterday was -9.3 Chemistry panel today reveals a potassium of 3.1 BUN of 6 creatinine 0.55 Sugars are running in the mid 100s Calcium was slightly low today at 7.4 and phosphorus was low at 0.5 Significant medications include potassium 40 mEq twice daily, LR is running at 50 mL's per hour Will add phosphorous. May discharge home tomorrow or Saturday if stable - Time Time Spent with patient: 35 or more minutes
[2019-10-02] MEDS: ATORVASTATIN CALCIUM 10 MG TABLET PO SCH (21:33)
[2019-10-02] MEDS: PHOSPHORUS #1 250 MG TABLET PO SCH (21:34)
[2019-10-03] MEDS: PREGABALIN 100 MG CAPSULE PO SCH (05:22)
[2019-10-03] MEDS ORDERED: METFORMIN HCL 500 MG TABLET PO SCH (08:00)
[2019-10-03] MEDS: PHOSPHORUS #1 250 MG TABLET PO SCH ×2 (09:05→11:33)
[2019-10-03] MEDS: INSULIN REG, HUMAN 100 UNIT/ML 3 ML VIAL (PYX) SUBCUT SCH ×2 (09:05→11:32)
[2019-10-03 09:32] LABS: HEMATOCRIT 37.9 % (37.9-51.0); HEMOGLOBIN 13.6 g/dL (13.5-17.0); MEAN CORPUSCULAR HEMOGLOBIN 32.9 pg (27.0-33.4); MEAN CORPUSCULAR HGB CONC 35.9 g/dL (32.0-36.0); MEAN CORPUSCULAR VOLUME 92 fl (80-97); PLATELET COUNT 242 10^3/uL (150-450); RED BLOOD COUNT 4.14 10^6/uL (4.35-5.55); RED CELL DISTRIBUTION WIDTH 13.4 % (11.5-14.0)
[2019-10-03 09:37] LABS: BLOOD UREA NITROGEN 7 mg/dL (7-20); CALCIUM 7.8 mg/dL (8.4-10.2); CHLORIDE 110 mmol/L (98-107); GLUCOSE 195 mg/dL (75-110); PHOSPHORUS 1.7 mg/dL (2.5-4.5); POTASSIUM 3.3 mmol/L (3.6-5.0)
[2019-10-03] MEDS: POTASSIUM CHLORIDE 10 MEQ TABLET.ER PO SCH (09:41)
[2019-10-03] MEDS: ENOXAPARIN SODIUM INJ 40 MG/0.4 ML DISP.SYRIN SUBCUT SCH (09:41)
[2019-10-03] MEDS: ASPIRIN 81 MG TABLET, ENT COATED PO SCH (09:41)
[2019-10-03 09:42] LABS: CARBON DIOXIDE 28 mmol/L (22-30)
[2019-10-03 09:53] VITALS: BP 122/67
[2019-10-03 09:56] LABS: ANION GAP 5 (5-19)
[2019-10-03 10:25] LABS: ABSOLUTE LYMPHOCYTES# (MANUAL) 2.7 10^3/uL (0.5-4.7); ABSOLUTE MONOCYTES # (MANUAL) 0.2 10^3/uL (0.1-1.4); BASOPHILS % (MANUAL) 0 % (0-2); EOSINOPHILS % (MANUAL) 0 % (0-6); LYMPHOCYTES % (MANUAL) 53 % (13-45); MONOCYTES % (MANUAL) 4 % (3-13); SEGMENTED NEUTROPHILS % (MAN) 43 % (42-78); TOTAL CELLS COUNTED 100
[2019-10-03 10:27] LABS: TOXIC GRANULATION 1+
[2019-10-03 10:28] LABS: PLATELET COMMENT ADEQUATE; PLATELET GIANT PRESENT; PLATELET LARGE PRESENT
--- NOTE | 2019-10-03 11:04 | PDOC DISCHARGE SUMMARY ---
Impression - Admit/DC Date/PCP Admission Date/Primary Care Provider: 09/30/19 11:40 Discharge Date: 10/03/19 - Discharge Diagnosis (1) Patient noncompliance Is this a current diagnosis for this admission?: Yes (2) DKA (diabetic ketoacidoses) Is this a current diagnosis for this admission?: Yes (3) Hypocalcemia Is this a current diagnosis for this admission?: Yes (4) Hypokalemia Is this a current diagnosis for this admission?: Yes (5) Hypophosphatemia Is this a current diagnosis for this admission?: Yes - Assessment Summary: Patient was transferred out of the ICU this morning around 0645 hours. Patient states that this is the first time he is ever been in DKA.. Patient states he felt like he had the flu about a week prior to this and did not take his insulin as prescribed. He has been a known diabetic for 7 to 10 years. Patient states he has no other comorbidities. Lives here in [place] with his extended family and he is a retired gardner. Vital signs today reveal the temperature 98.3 pulse is approximately 55 and regular blood pressure 113/59, O2 saturations 100% on room air Labs on admission white count was 12,000, today it was 6.5 hemoglobin is stable at 13.4 Venous blood gas yesterday morning showed a pH of 7.30 CO2 was up to 32.7 Bicarb on admission was 4.6 yesterday was 15.9 Base excess on admission was -29.9 yesterday was -9.3 Chemistry panel today reveals a potassium of 3.1 BUN of 6 creatinine 0.55 Sugars are running in the mid 100s Calcium was slightly low today at 7.4 and phosphorus was low at 0.5 Significant medications include potassium 40 mEq twice daily, LR is running at 50 mL's per hour Will add phosphorous. May discharge home tomorrow or Saturday if stable 10/03/2019 Patient is sitting up in bed eating breakfast and says he wants to go home. His vital signs are stable this morning Labs reveal a normal white count H&H is stable She shows a sodium 142 potassium slightly low at 3.3 although up from yesterday of 3.1. Patient is being discharged home on potassium BUN is 7 creatinine 0.59 GFR is greater than 60 glucose levels are running about 200 Calcium is up to 7.8 phosphorus is up to 1.7 Patient will resume taking his medicines as prior to admission plus potassium supplements. Patient will see his primary care provider next week for repeat labs. Patient has multiple family members at home that can help him. Patient is medically stable for discharge - Additional Information Resuscitation Status: Full Code Discharge Diet: Diabetic Discharge Activity: Activity As Tolerated Prescriptions: Potassium Chloride [Klor-Con 10 Meq Tablet ER] 10 meq PO DAILY 15 Days #30 tablet.sa Potassium Chloride [Klor-Con 10 Meq Tablet ER] 10 meq PO BID 30 Days #60 tablet.er Home Medications: Aspirin [Ecotrin 81 mg EC Tablet] 81 mg PO DAILY 09/30/19 Atorvastatin Calcium [Lipitor 10 mg Tablet] 10 mg PO QHS 09/30/19 Buprenorphine HCl/Naloxone HCl [Bupreno-Nalox 2-0.5 mg Sl Film] 1 each PO DAILY 09/30/19 Empagliflozin/Metformin HCl [Synjardy 12.5-1,000 mg Tablet] 1 each PO Q12 09/30/19 Pregabalin [Lyrica 100 mg Capsule] 100 mg PO Q8 09/30/19 Acetaminophen [Tylenol 325 mg Tablet] 650 mg PO Q4HP PRN tablet 10/03/19 Potassium Chloride [Klor-Con 10 Meq Tablet ER] 10 meq PO BID 30 Days #60 tabl et.er 10/03/19 Potassium Chloride [Klor-Con 10 Meq Tablet ER] 10 meq PO DAILY 15 Days #30 tablet.sa 10/03/19 History of Present Illiness History of Present Illness: MARLENE LANG is a 59 year old male Physical Exam Vital Signs: Temp Pulse Resp BP Pulse Ox 97.9 F 48 L 16 122/67 100 10/03/19 08:11 10/03/19 08:11 10/03/19 08:11 10/03/19 08:11 10/03/19 08:11 Intake & Output 10/02/19 10/03/19 10/04/19 06:59 06:59 06:59 Intake Total 2074 3225 Output Total 500 Balance 1574 3225 Weight 93.3 kg 91.9 kg Results Laboratory Results: WBC 5.0 10^3/uL (4.0-10.5) 10/03/19 08:48 RBC 4.14 10^6/uL (4.35-5.55) L 10/03/19 08:48 Hgb 13.6 g/dL (13.5-17.0) 10/03/19 08:48 Hct 37.9 % (37.9-51.0) 10/03/19 08:48 MCV 92 fl (80-97) 10/03/19 08:48 MCH 32.9 pg (27.0-33.4) 10/03/19 08:48 MCHC 35.9 g/dL (32.0-36.0) 10/03/19 08:48 RDW 13.4 % (11.5-14.0) 10/03/19 08:48 Plt Count 242 10^3/uL (150-450) 10/03/19 08:48 Lymph % (Auto) Not Reportable 10/03/19 08:48 Long % (Auto) Not Reportable 10/03/19 08:48 Eos % (Auto) Not Reportable 10/03/19 08:48 Baso % (Auto) Not Reportable 10/03/19 08:48 Absolute Neuts (auto) Not Reportable 10/03/19 08:48 Absolute Lymphs (auto) Not Reportable 10/03/19 08:48 Absolute Monos (auto) Not Reportable 10/03/19 08:48 Absolute Eos (auto) Not Reportable 10/03/19 08:48 Absolute Basos (auto) Not Reportable 10/03/19 08:48 Total Counted 100 10/03/19 08:48 Seg Neutrophils % Not Reportable 10/03/19 08:48 Seg Neuts % (Manual) 43 % (42-78) 10/03/19 08:48 Lymphocytes % (Manual) 53 % (13-45) H 10/03/19 08:48 Atypical Lymphs % 2 % (0) 09/30/19 08:35 Monocytes % (Manual) 4 % (3-13) 10/03/19 08:48 Eosinophils % (Manual) 0 % (0-6) 10/03/19 08:48 Basophils % (Manual) 0 % (0-2) 10/03/19 08:48 Metamyelocytes % 1 % (0-1) 09/30/19 08:35 Abs Neuts (Manual) 2.2 10^3/uL (1.7-8.2) 10/03/19 08:48 Abs Lymphs (Manual) 2.7 10^3/uL (0.5-4.7) 10/03/19 08:48 Abs Monocytes (Manual) 0.2 10^3/uL (0.1-1.4) 10/03/19 08:48 Absolute Eos (Manual) 0.0 10^3/uL (0.0-0.6) 10/03/19 08:48 Abs Basophils (Manual) 0.0 10^3/uL (0.0-0.2) 10/03/19 08:48 Toxic Granulation 1+ 10/03/19 08:48 Large Platelets PRESENT 10/03/19 08:48 Giant Platelets PRESENT 10/03/19 08:48 Platelet Comment ADEQUATE 10/03/19 08:48 Microcytosis 1+ 09/30/19 08:35 VBG pH 7.30 (7.30-7.42) 10/01/19 09:20 VBG pCO2 32.7 mmHg (35-63) L 10/01/19 09:20 VBG HCO3 15.9 mmol/L (20-32) L 10/01/19 09:20 VBG Base Excess -9.3 mmol/L 10/01/19 09:20 Sodium 142.5 mmol/L (137-145) 10/03/19 08:48 Potassium 3.3 mmol/L (3.6-5.0) L 10/03/19 08:48 Chloride 110 mmol/L (98-107) H 10/03/19 08:48 Carbon Dioxide 28 mmol/L (22-30) 10/03/19 08:48 Anion Gap 5 (5-19) 10/03/19 08:48 BUN 7 mg/dL (7-20) 10/03/19 08:48 Creatinine 0.59 mg/dL (0.52-1.25) 10/03/19 08:48 Est GFR ( Amer) > 60 (>60) 10/03/19 08:48 Est GFR (Non-Af Amer) Cancelled 10/01/19 02:18 Est GFR (MDRD) Non-Af > 60 (>60) 10/03/19 08:48 Glucose 195 mg/dL (75-110) H 10/03/19 08:48 POC Glucose 215 mg/dL (70-110) H 10/03/19 08:11 Lactic Acid 3.3 mmol/L (0.7-2.1) H 09/30/19 09:50 Calcium 7.8 mg/dL (8.4-10.2) L 10/03/19 08:48 Phosphorus 1.7 mg/dL (2.5-4.5) L 10/03/19 08:48 Magnesium 2.3 mg/dL (1.6-2.3) 10/01/19 02:18 Total Bilirubin 0.5 mg/dL (0.2-1.3) 09/30/19 08:35 Direct Bilirubin 0.5 mg/dL (0.0-0.4) H 09/30/19 08:35 Neonat Total Bilirubin Not Reportable 09/30/19 08:35 Neonat Direct Bilirubin Not Reportable 09/30/19 08:35 Neonat Indirect Bili Not Reportable 09/30/19 08:35 AST 25 U/L (17-59) 09/30/19 08:35 ALT 23 U/L (<50) 09/30/19 08:35 Alkaline Phosphatase 113 U/L (38-126) 09/30/19 08:35 Total Protein 8.4 g/dL (6.3-8.2) H 09/30/19 08:35 Albumin 4.9 g/dL (3.5-5.0) 09/30/19 08:35 EGFR Cancelled 10/01/19 02:18 Urine Color STRAW 09/30/19 09:50 Urine Appearance CLEAR 09/30/19 09:50 Urine pH 5.0 (5.0-9.0) 09/30/19 09:50 Ur Specific Magnet 1.017 09/30/19 09:50 Urine Protein 100 mg/dL (NEGATIVE) H 09/30/19 09:50 Urine Glucose (UA) >=500 mg/dL (NEGATIVE) H 09/30/19 09:50 Urine Ketones 80 mg/dL (NEGATIVE) H 09/30/19 09:50 Urine Blood MODERATE (NEGATIVE) H 09/30/19 09:50 Urine Nitrite NEGATIVE (NEGATIVE) 09/30/19 09:50 Urine Bilirubin NEGATIVE (NEGATIVE) 09/30/19 09:50 Urine Urobilinogen NEGATIVE mg/dL (<2.0) 09/30/19 09:50 Ur Leukocyte Esterase NEGATIVE (NEGATIVE) 09/30/19 09:50 Urine WBC (Auto) 0 /HPF 09/30/19 09:50 Urine RBC (Auto) 1 /HPF 09/30/19 09:50 Squamous Epi Cells Auto 1 /HPF 09/30/19 09:50 Urine Mucus (Auto) RARE /LPF 09/30/19 09:50 Urine Ascorbic Acid NEGATIVE (NEGATIVE) 09/30/19 09:50 Stroke Is this a Stroke Patient?: No Acute Heart Failure - Is this a Heart Failure Patient?: No
--- NOTE | 2019-10-16 13:03 | Progress Note ---
Provider Note Provider Note: This patient was admitted on 09/30/19. A PN for that day is actually the H&P.
== END 2019-10-03 12:10 | disposition home or self-care (01) | DRG 639 ==
LOC: ER 08:52 → EH 11:40 → ICU 13:41 → 3S 10-02 06:51
PROVIDERS: ADMIT Anesthesiology; ATTEND Anesthesiology
DX: E11.10 Type 2 diabetes mellitus with ketoacidosis without coma (principal); E83.39 Other disorders of phosphorus metabolism; E83.51 Hypocalcemia; E87.6 Hypokalemia; Z91.19 Patient's noncompliance with other medical treatment and regimen; Z79.82 Long term (current) use of aspirin; Z79.4 Long term (current) use of insulin; Z87.891 Personal history of nicotine dependence
CPT/HCPCS: 36415; 80048; 80053; 81001; 82803; 82962; 83605; 83735; 84100; 85025; 96360; 96361; 99233; 99291; J1650; J1815; J3490; J7030; J7042; J7050; J7120

== ENCOUNTER 2020-08-15 04:15 | Emergency (ER) | payer BC ==
[2020-08-15] MEDS ORDERED: ONDANSETRON HCL INJ/PF 4 MG/2 ML SDV IV ONE (06:27)
[2020-08-15] MEDS ORDERED: NORMAL SALINE 1000 ML 1,000 ML IV PRN (06:27)
--- NOTE | 2020-08-15 06:34 | ER Document Report ---
ED General - General Chief Complaint: Nausea/Vomiting Stated Complaint: TROUBLE BREATHING Time Seen by Provider: 08/15/20 06:17 Primary Care Provider: LASHONDA FONTAINE MD [Primary Care Provider] - Follow up as needed TRAVEL OUTSIDE OF THE [place] IN LAST 30 DAYS: No - HPI Notes: Chief complaint: Vomiting, generalized weakness and rapid breathing History of present illness: 60-year-old male type I diabetic on insulin and oral meds reports illness for the past 3 days with increasing blood sugars now in the mid 300s with associated multiple episodes of vomiting, generalized weakness and rapid breathing. He denies fever. He denies sputum production. He is vomited about 9 times today. He denies any chest pain. He denies any skin sores or boils. Questionable compliance with his prescribed insulin regimen. Review of records shows that he was previously admitted to the hospital here within the last year for diabetic ketoacidosis. He is followed by Dr. Fontaine. - Related Data Allergies/Adverse Reactions: No Known Allergies Allergy (Unverified 11/18/18 15:30) Home Medications: metformin, ozempic, lyrica Past Medical History - General Information source: Patient, Relative, [facility] Records - Social History Smoking Status: Never Smoker Frequency of alcohol use: None Drug Abuse: None Family History: Reviewed & Not Pertinent - Past Medical History Cardiac Medical History: Reports: None Endocrine Medical History: Reports: Hx Diabetes Mellitus Type 1 Renal/ Medical History: Denies: Hx Peritoneal Dialysis Psychiatric Medical History: Reports: Hx Depression Review of Systems - Review of Systems Notes: Constitutional: Negative for fever. Very thirsty. HENT: Negative for sore throat. Eyes: Negative for visual changes. Cardiovascular: Negative for chest pain. Respiratory: As per HPI. Gastrointestinal: As per HPI. Genitourinary: Positive polyuria. Negative for dysuria. Musculoskeletal: Negative for back pain. Skin: Negative for rash. Neurological: Negative for headaches, focal weakness or numbness. 10 point ROS negative except as marked above and in HPI. Physical Exam - Vital signs Vitals: Pulse Resp BP Pulse Ox 131 H 20 137/96 H 100 08/15/20 04:33 08/15/20 04:33 08/15/20 04:33 08/15/20 04:33 - Notes Notes: GENERAL: Male patient approximately stated age who is exhibiting Kussmaul respirations and appears very dehydrated and weak. SKIN: Diminished turgor no rashes. HEAD: Normocephalic atraumatic. EYES: Eyes appear sunken consistent with dehydration. PERRLA. EOMI. Conjunctivae and sclerae clear. EARS: CANALS AND TMS CLEAR. NOSE: CLEAR. MOUTH: Tacky oral mucosa. Good dentition. No stridor or edema. No drooling. NECK: Supple. No masses or thyromegaly. No adenopathy. Carotids 2+ without bruits. No JVD. BACK: Symmetrical without tenderness. CHEST: Kussmaul respirations. Breath sounds clear and symmetrical. HEART: Tachycardic regular rhythm. No murmur gallop or rub. ABDOMEN: Soft nontender without masses, organomegaly or rebound. Bowel sounds normally active. No bruits. GENITALIA: Deferred. EXTREMITIES: No edema. No calf tenderness. Cap refill less than 1.5 seconds. Dorsalis pedis and posterior tibial pulses 3+ and symmetrical. NEUROLOGICAL: GCS 15. Alert and oriented x3. Fluent speech. Cranial nerves II through XII intact. Sensorimotor and cerebellar normal. Normal tone. PSYCHIATRIC: Anxious Course - Re-evaluation Re-evalutation: 08/15/20 07:11 Clinical presentation was highly suggestive of severe DKA. Laboratory data confirmatory. Patient started on IV insulin infusion and IV fluid resuscitation with potassium supplementation. Patient will be admitted to the critical care unit. 08/15/20 07:[address] Marrero from critical care unit and he has no beds available. Advised patient he will need transfer. He requests [facility] and I have initiated transfer process. 08/15/20 09:19 Patient has been accepted for transfer to ICU at [facility] by Dr. Olivo. Bed is not available at this point and I anticipate this will be available later today. We have reviewed interval management of the patient with Dr. Olivo. He will remain on insulin drip and we will follow arterial blood gas and basic metabolic profile serially. This man remains tachycardic. He is generally feeling better and is no longer n auseated. He has had 2 L of normal saline in at this point and he has maintenance infusion of normal saline with KCl 20 mEq/L infusing at 150. His fingerstick glucose at the bedside is now down to 240. He remains on 8 units/h of insulin continuous infusion and this will remain ongoing at this time. I am additionally putting up a liter of half-normal saline with 5% dextrose to infuse at 250/h. We will continue to monitor fingerstick glucose hourly. I am repeating a basic metabolic profile at this time and his repeat ABG remains pending. - Vital Signs Vital signs: Temp Pulse Resp BP Pulse Ox 98.0 F 131 H 24 H 126/79 H 96 08/15/20 10:01 08/15/20 04:33 08/15/20 11:00 08/15/20 11:00 08/15/20 11:00 - Laboratory Results Result Diagrams: 08/15/20 06:10 08/15/20 10:25 Laboratory Results Interpreted: 08/15/20 08/15/20 08/15/20 06:10 06:10 06:35 WBC 20.7 H MCHC 31.9 L RDW 14.5 H Seg Neuts % (Manual) 88 H Lymphocytes % (Manual) 6 L Abs Neuts (Manual) 18.8 H Carbonic Acid 0.55 L ABG pH 6.92 L* ABG pCO2 18.4 L* ABG pO2 58.1 L ABG HCO3 3.7 L ABG Total CO2 4.3 L ABG O2 Saturation 71.1 L Carbon Dioxide < 5 L* Anion Gap Creatinine 1.44 H Est GFR (MDRD) Non-Af 50 L Glucose 420 H* POC Glucose Lactic Acid Urine Protein Urine Glucose (UA) Urine Ketones Urine Blood 08/15/20 08/15/20 08/15/20 07:25 07:34 08:35 WBC MCHC RDW Seg Neuts % (Manual) Lymphocytes % (Manual) Abs Neuts (Manual) Carbonic Acid 0.81 L ABG pH 6.94 L* ABG pCO2 27.0 L ABG pO2 34.3 L* ABG HCO3 5.6 L ABG Total CO2 6.5 L ABG O2 Saturation 38.1 L Carbon Dioxide Anion Gap Creatinine Est GFR (MDRD) Non-Af Glucose POC Glucose 371 H Lactic Acid Urine Protein 100 H Urine Glucose (UA) >=500 H Urine Ketones 80 H Urine Blood MODERATE H 08/15/20 08/15/20 08/15/20 09:01 09:02 10:10 WBC MCHC RDW Seg Neuts % (Manual) Lymphocytes % (Manual) Abs Neuts (Manual) Carbonic Acid ABG pH ABG pCO2 ABG pO2 ABG HCO3 ABG Total CO2 ABG O2 Saturation Carbon Dioxide Anion Gap Creatinine Est GFR (MDRD) Non-Af Glucose POC Glucose 240 H 293 H Lactic Acid 3.3 H Urine Protein Urine Glucose (UA) Urine Ketones Urine Blood 08/15/20 08/15/20 10:25 11:17 WBC MCHC RDW Seg Neuts % (Manual) Lymphocytes % (Manual) Abs Neuts (Manual) Carbonic Acid ABG pH ABG pCO2 ABG pO2 ABG HCO3 ABG Total CO2 ABG O2 Saturation Carbon Dioxide 5 L* Anion Gap 27 H Creatinine Est GFR (MDRD) Non-Af Glucose 210 H POC Glucose 218 H Lactic Acid Urine Protein Urine Glucose (UA) Urine Ketones Urine Blood Critical Laboratory Results Reviewed: Yes Attending or Supervising Physician who Reviewed Labs: FE TSAI - Radiology Results Radiology Results Interpreted: 08/15/20 09:46 Chest X-Ray 08/15/20 06:26 IMPRESSION: No active disease. Critical Radiology Results Reviewed: No Critical Results - EKG Interpretation by Me Additional EKG results interpreted by me: 08/15/20 06:38 Twelve-lead EKG reviewed by me contemporaneously: 0628 hrs. Indication for study: DKA Rhythm: Sinus tachycardia Rate: 123 Intervals: Normal QRS axis: +[address]/T wave changes: None Comparison with prior tracing: Sinus tachycardia and diffuse movement artifact are now present compared with previous tracing of 11/18/2018 Interpretation: Sinus tachycardia Critical Care Note - Critical Care Note Total time excluding time spent on procedures (mins): 180 - IV insulin infusion. ICU admission. Discharge - Discharge Clinical Impression: DKA (diabetic ketoacidoses) Qualifiers: Diabetes mellitus type: type 1 Diabetes mellitus complication detail: without coma Qualified Code(s): E10.10 - Type 1 diabetes mellitus with ketoacidosis without coma Condition: Critical Disposition: [facility] Referrals: LASHONDA FONTAINE MD [Primary Care Provider] - Follow up as needed
[2020-08-15 06:41] LABS: HEMATOCRIT 49.1 % (37.9-51.0); HEMOGLOBIN 15.7 g/dL (13.5-17.0); MEAN CORPUSCULAR HGB CONC 31.9 g/dL (32.0-36.0); MEAN CORPUSCULAR VOLUME 97 fl (80-97); PLATELET COUNT 285 10^3/uL (150-450); RED BLOOD COUNT 5.06 10^6/uL (4.35-5.55); RED CELL DISTRIBUTION WIDTH 14.5 % (11.5-14.0); WHITE BLOOD COUNT 20.7 10^3/uL (4.0-10.5)
[2020-08-15 06:47] LABS: ARTERIAL BLOOD BASE EXCESS -27.7 mmol/L; ARTERIAL BLOOD H2CO3 0.55 mmol/L (1.05-1.35); ARTERIAL BLOOD HCO3 3.7 mmol/L (20-24); ARTERIAL BLOOD O2 SATURATION 71.1 % (94-98); ARTERIAL BLOOD PO2 58.1 mmHg (80-100); ARTERIAL BLOOD TOTAL CO2 4.3 mmol/L (23-27)
[2020-08-15 06:48] LABS: ARTERIAL BLOOD FIO2 ROOM AIR
[2020-08-15 06:48] LABS: ALKALINE PHOSPHATASE 90 U/L (38-126); ASPARTATE AMINO TRANSFERASE 20 U/L (17-59); BILIRUBIN,DIRECT 0.3 mg/dL (0.0-0.4); BILIRUBIN,TOTAL 0.4 mg/dL (0.2-1.3); BLOOD UREA NITROGEN 13 mg/dL (7-20); CALCIUM 9.7 mg/dL (8.4-10.2); CHLORIDE 100 mmol/L (98-107); POTASSIUM 4.9 mmol/L (3.6-5.0)
[2020-08-15 06:50] LABS: ARTERIAL BLOOD PCO2 18.4 mmHg (35-45); ARTERIAL BLOOD PH 6.92 (7.35-7.45)
[2020-08-15 07:05] LABS: CARBON DIOXIDE < 5 mmol/L (22-30); GLUCOSE 420 mg/dL (75-110)
[2020-08-15] MEDS ORDERED: NORMAL SALINE 100 ML with INSULIN REGULAR, HUMAN 100 UNIT IV PRN ×2 (07:06)
[2020-08-15] MEDS ORDERED: POTASSI CL 20 MEQ/NS 1L 1,000 ML IV PRN (07:06)
[2020-08-15] MEDS ORDERED: INSULIN REG, HUMAN 100 UNIT/ML 3 ML VIAL (PYX) ONE (07:25)
[2020-08-15 07:26] LABS: ABSOLUTE LYMPHOCYTES# (MANUAL) 1.2 10^3/uL (0.5-4.7); ABSOLUTE MONOCYTES # (MANUAL) 0.6 10^3/uL (0.1-1.4); ANISOCYTOSIS SLIGHT; BAND NEUTROPHILS % (MANUAL) 3 % (3-5); BASOPHILS % (MANUAL) 0 % (0-2); EOSINOPHILS % (MANUAL) 0 % (0-6); LYMPHOCYTES % (MANUAL) 6 % (13-45); MONOCYTES % (MANUAL) 3 % (3-13); PLATELET COMMENT ADEQUATE; SEGMENTED NEUTROPHILS % (MAN) 88 % (42-78); TOTAL CELLS COUNTED 100; TOXIC GRANULATION SLIGHT; TOXIC VACUOLATION PRESENT
--- NOTE | 2020-08-15 07:50 | RADIOLOGY REPORT (SQ) ---
CHEST X-RAY 1 VIEW on 08/15/2020 at 6:57 AM CLINICAL INDICATION: Diabetic ketoacidosis COMPARISON: None FINDINGS: There is mild elevation of the right hemidiaphragm. There is minimal adjacent right basilar atelectasis and/or scarring. The lungs are otherwise clear. Cardiac, hilar and mediastinal contours are within normal limits. Pulmonary vascularity is within normal limits. No bony abnormality is noted. IMPRESSION: No active disease.
--- NOTE | 2020-08-15 07:51 | EKG REPORT ---
SEVERITY:- ABNORMAL ECG - SINUS TACHYCARDIA BORDERLINE ST DEPRESSION, DIFFUSE LEADS ABNORMAL T, CONSIDER ISCHEMIA, DIFFUSE LEADS : Confirmed by: Linus Palma MD 15-Aug-2020 07:50:33
[2020-08-15 08:10] LABS: APPEARANCE,URINE CLEAR; BILIRUBIN,URINE NEGATIVE (NEGATIVE); COLOR,URINE STRAW; GLUCOSE, URINE >=500 mg/dL (NEGATIVE); KETONES,URINE 80 mg/dL (NEGATIVE); LEUKOCYTE ESTERASE,URINE NEGATIVE (NEGATIVE); NITRITE,URINE NEGATIVE (NEGATIVE); PROTEIN,URINE 100 mg/dL (NEGATIVE); URINE SPECIFIC GRAVITY 1.022; UROBILINOGEN,URINE NEGATIVE mg/dL (<2.0)
[2020-08-15 09:12] LABS: ARTERIAL BLOOD BASE EXCESS -25.9 mmol/L; ARTERIAL BLOOD H2CO3 0.81 mmol/L (1.05-1.35); ARTERIAL BLOOD HCO3 5.6 mmol/L (20-24); ARTERIAL BLOOD O2 SATURATION 38.1 % (94-98); ARTERIAL BLOOD TOTAL CO2 6.5 mmol/L (23-27)
[2020-08-15] MEDS ORDERED: DEXTROSE 5%-1/2 NORMAL SALINE 1,000 ML IV ONE (09:17)
[2020-08-15 09:21] LABS: ARTERIAL BLOOD PH 6.94 (7.35-7.45)
[2020-08-15 09:22] LABS: ARTERIAL BLOOD PO2 34.3 mmHg (80-100)
[2020-08-15 09:56] LABS: ARTERIAL BLOOD FIO2 ROOM AIR
[2020-08-15 10:56] LABS: BLOOD UREA NITROGEN 13 mg/dL (7-20); CALCIUM 8.4 mg/dL (8.4-10.2); CHLORIDE 107 mmol/L (98-107); GLUCOSE 210 mg/dL (75-110); POTASSIUM 4.2 mmol/L (3.6-5.0)
[2020-08-15 11:09] LABS: ANION GAP 27 (5-19); CARBON DIOXIDE 5 mmol/L (22-30)
[2020-08-15 12:23] VITALS: BP 119/70
== END 2020-08-15 12:50 | disposition short-term general hospital (02) ==
LOC: ER 04:15
DX: E10.10 Type 1 diabetes mellitus with ketoacidosis without coma (principal); R35.8 Other polyuria; R63.1 Polydipsia; R53.1 Weakness; R11.2 Nausea with vomiting, unspecified; R00.0 Tachycardia, unspecified; Z79.4 Long term (current) use of insulin; Z79.899 Other long term (current) drug therapy; Z20.828 Contact with and (suspected) exposure to other viral communicable diseases
CPT/HCPCS: 93005; 99285; 96361; 96375; 96365; 96366; 96368; 36415; 87040; 82962; 82803; 83605; 83735; 85025; 0241U ×4; 87077; 80053; 81001; 84484; 87150 ×26; 71045; 93010; J2405; J7030; J3480; C9803

== ENCOUNTER → 2020-09-07 | Outpatient (CLI) | payer BC ==
[2020-09-07 14:45] VITALS: BP 116/68
--- NOTE | 2020-09-07 14:45 | ER [facility] ASSESSMENT REPORT ---
Intake - In the Last 14 days Have you traveled outside [place]?: No Have you been in close contact with someone CONFIRMED: Yes Worked in Healthcare?: No - Symptoms Subjective Fever(Bradley feverish): Yes Chills: Yes Muscule Aches: Yes Runny Nose: Yes Sore Throat: No Cough (New or worsening chronic cough): No Shortness of breath: No Nausea or Vomiting: No Headache: No Abdominal Pain: No Diarrhea(3 or more loose stools in last 24 hours): No - Do you have any of the following Chronic lung disease: Asthma or emphysema or COPD: No Cystic Fibrosis: No Diabetes: Yes High Blood Pressure: No Cardiovascular Disease: No Chronic Kidney Disease: No Chronic Liver Disease: No Chronic blood disorder like Sickle Cell Disease: No Weak immune system due to disease or medication: No Neurologic condition that limits movement: No Developmental delay - Moderate to Severe: No Morbid Obesity (>100 pounds over ideal weight): No - Objective Temperature: 98.8 F Pulse Rate: 85 Respiratory Rate: 15 Blood Pressure: 116/68 O2 Sat by Pulse Oximetry: 94 Objective: Given above, testing performed: covid. flu Disposition: Home; Selfcare General - General Stated Complaint: Fatigue myalgia Mode of Arrival: Ambulatory Information source: Patient - HPI Notes: 60-year-old male presents [facility] clinic for COVID-19 testing. Patient reports contact with mother who has tested positive for COVID-19 and is currently hospitalized. Onset of symptoms 09/06/2020. Patient is reporting fatigue, subjective fever, muscle aches, and runny nose. Denies any sore throat, cough, shortness of breath, GI upset, or headache. - Related Data Allergies/Adverse Reactions: No Known Allergies Allergy (Unverified 11/18/18 15:30) Past Medical History - General Information source: Patient - Social History Smoking Status: Former Smoker Family History: Reviewed & Not Pertinent - Past Medical History Cardiac Medical History: Reports: None Pulmonary Medical History: Reports: None EENT Medical History: Reports: None Neurological Medical History: Reports: None Endocrine Medical History: Reports: Hx Diabetes Mellitus Type 1 Renal/ Medical History: Reports: None. Denies: Hx Peritoneal Dialysis Malignancy Medical History: Reports None GI Medical History: Reports: None Musculoskeletal Medical History: Reports None Skin Medical History: Reports None Psychiatric Medical History: Reports: Hx Depression Traumatic Medical History: Reports: None Infectious Medical History: Reports: None Past Surgical History: Reports: None Physical Exam - General General appearance: Appears well, Alert In distress: None Notes: PHYSICAL EXAMINATION: GENERAL: Well-appearing and in no acute distress. HEAD: Atraumatic, normocephalic. EYES: sclera anicteric, conjunctiva are normal. ENT: nares patent. Moist mucous membranes. NECK: Normal range of motion, supple without lymphadenopathy. LUNGS: No increased work of breathing. Lung sounds CTAB and equal. No wheezes rales or rhonchi. HEART: Regular rate and rhythm without murmurs. ABDOMEN: Soft, nontender, normal bowel sounds, no guarding. EXTREMITIES: Normal range of motion, no pitting edema. No cyanosis. NEUROLOGICAL: A&O x 3. Normal speech. PSYCH: Normal mood, normal affect. SKIN: Warm, Dry, normal turgor, no rashes or lesions noted Patient Education/Counseling Counseling/Education: Patient presents with symptoms associated with possible Covid 19 infection. Patient does not have emergency worrying symptoms such as difficulty breathing, shortness of breath, chest pain, pressure, confusion or cyanosis. Patient appears suitable for discharge as vital signs are stable and patient is nontoxic in appearance. Good return precautions have been discussed with patient, patient verbalized understanding and is agreeable with discharge plan of care at this time. Guidance for worsening S/SX: As a person under investigation for Covid 19, the [place] department of Health and Human Services, division of public health advises you to adhere to the following guidance until your test results are reported to you. If your test result is positive, you will receive additional information from your provider and your local health department at that time. Remain at home until you are cleared by the health provider or public health authorities. Keep a log of visitors to your home, notify any visitors to your home of your isolation status. If you plan to move to a new address or leave the county, notify the local health department in your County. Call your doctor or seek care if you have an urgent medical need. Before seeking medical care, call ahead to get instructions from the provider before arriving at the medical office clinic or hospital. Notify them that you are being tested for the virus that causes Covid 19 so that arrangements can be made, as necessary, to prevent transmission to others in the healthcare setting. Next, notify the local health department in your county. If a medical emergency arises and you need to call 911, inform the first responders that you are being tested for the virus that causes Covid 19. Next, notify the local health department in your county. [facility] Discharge - Discharge Clinical Impression: Exposure to COVID-19 virus, Encounter for screening for COVID-19 Condition: Good Disposition: Home; Selfcare
[2020-09-07 15:10] LABS: A TYPE INFLUENZA AG NEGATIVE (NEGATIVE); B INFLUENZA AG NEGATIVE (NEGATIVE)
== END ==
LOC: RDC 13:17
PROVIDERS: ATTEND Registered Nurse
DX: U07.1 COVID-19 (principal); R50.9 Fever, unspecified; R09.89 Other specified symptoms and signs involving the circulatory and respiratory systems; M79.10 Myalgia, unspecified site; R53.83 Other fatigue; E10.9 Type 1 diabetes mellitus without complications; Z87.891 Personal history of nicotine dependence
CPT/HCPCS: 87804; 99202; 99211; U0003; C9803; 87635